=== PATIENT | male | born 1950 | race Caucasian/White ===

== ENCOUNTER 2016-04-16 09:45 | Day surgery (SDC) | payer BC, MEDICARE ==
--- NOTE | 2016-04-15 17:40 | PCM.PREANE ---
<Faisal Shook E - Last Filed: 04/15/16 17:38> Preanesthetic Assessment - ANESTHESIA/TRANSFUSION/FAMILY HX Family History of Anesthesia Reaction: No - REVIEW OF SYSTEMS Constitutional: Reports: no symptoms STAGE DRIVER: Reports: no symptoms Respiratory: Reports: no symptoms Cardiovascular: Reports: no symptoms GI: Reports: no symptoms Other: Reports: none - PHYSICAL ASSESSMENT Vital Signs: Last Vital Signs Temp 98.2 F 04/16/16 10:50 Pulse 58 L 04/16/16 10:50 Resp 16 04/16/16 10:50 BP 122/80 04/16/16 10:50 Pulse Ox 96 04/16/16 10:50 Height: 5 ft 8 in Weight: 165 lb - LAB Values: Laboratory Last Values INR 1.28 (0.86-1.11) H 04/16/16 10:11 - ALLERGIES Allergies/Adverse Reactions: Allergies Allergy/AdvReac Type Severity Reaction Status Date / Time No Known Allergies Allergy Verified 04/13/16 12:43 - ANESTHESIA PLAN Free Text/Narrative:: EKG done at [facility] pre op shows 1st degree AV block and LVH Anesthesia Type Planned: MAC - ACKNOWLEDGEMENTS Pt an appropriate candidate for the planned anesthesia: Yes Alternatives and risks of anesthesia discussed w pt/guardian: Yes Pt/Guardian understands and agree with anesthesia plan: Yes PreAnesthesia Questionnaire HEENT History: Reports: Other (see below) Other HEENT History: wears glasses Cardiovascular History: Reports: Heart valve replacement Other Cardiovascular History: hx aortic valve replacement Respiratory History: Reports: None Gastrointestinal History: Reports: Other (see below) Other Gastrointestinal History: occasional heartburn Genitourinary History: Reports: None Musculoskeletal History: Reports: Arthritis Neurological History: Reports: None Psychiatric History: Reports: None Endocrine/Metabolic History: Reports: None Hematologic History: Reports: Blood transfusion(s) Immunologic History: Reports: None Oncologic (Cancer) History: Reports: None Dermatologic History: Reports: None - Infectious Disease History Infectious Disease History: Reports: None - Past Surgical History Head Surgeries/Procedures: Reports: None GI Surgical History: Reports: Hernia, inguinal Male Surgical History: Reports: Vasectomy - SUBSTANCE USE Smoking Status *Q: Never Smoker Recreational Drug Use History: No - HOME MEDS Home Medications: Home Meds Benazepril/Hydrochlorothiazide [Lotensin HCT 20-25 MG] 1 tab PO DAILY 04/13/16 [ History] NIFEdipine [Nifedipine ER] 90 mg PO ASDIRECTED 04/13/16 [History] Warfarin [Coumadin] 1 tab PO ASDIRECTED 04/13/16 [History] Warfarin [Coumadin] 1 tab PO ASDIRECTED 04/13/16 [History] - CURRENT (IN HOUSE) MEDS Current Meds: Current Medications Lactated Ringer's (Ringers, Lactated) 1,000 mls @ 125 mls/hr IV ASDIRECTED MARIE Last Admin: 04/16/16 11:07 Dose: 125 mls/hr Sodium Chloride (Saline Flush) 10 ml FLUSH ASDIRECTED PRN PRN Reason: Keep Vein Open Sodium Chloride (Saline Flush) 2.5 ml FLUSH ASDIRECTED PRN PRN Reason: Keep Vein Open Discontinued Medications Fentanyl (Sublimaze) Confirm Administered Dose 100 mcg .ROUTE .STK-MED ONE Stop: 04/16/16 10:52 Lidocaine (Xylocaine-Mpf 2%) Confirm Administered Dose 5 ml .ROUTE .STK-MED ONE Stop: 04/16/16 10:51 Midazolam HCl (Versed 1 Mg/Ml) Confirm Administered Dose 2 mg .ROUTE .STK-MED ONE Stop: 04/16/16 10:52 Propofol (Diprivan 20 Ml) Confirm Administered Dose 200 mg .ROUTE .STK-MED ONE Stop: 04/16/16 10:26 Propofol (Diprivan 20 Ml) Confirm Administered Dose 200 mg .ROUTE .STK-MED ONE Stop: 04/16/16 10:51 <Neptali Grullon - Last Filed: 04/16/16 11:29> Preanesthetic Assessment - ANESTHESIA/TRANSFUSION/FAMILY HX Anesthesia/Transfusion History: Prior Anesthesia Intubation History: Unknown Additional History: Off coumadin for 3 days. Arranged for cook pickled meat post procedure...may be delayed. - REVIEW OF SYSTEMS Constitutional: Reports: no symptoms STAGE DRIVER: Reports: no symptoms Respiratory: Reports: no symptoms Cardiovascular: Reports: no symptoms, blood pressure problem (treated) GI: Reports: no symptoms Other: Reports: none - PHYSICAL ASSESSMENT ASA Class: 3 Airway Class: Mallampati = 2 Dentition: Reports: normal dentition Thyro-Mental Finger Breadths: 3 Mouth Opening Finger Breadths: 3 ROM/Head Extension: full Respiratory Status: lungs clear to auscultation bilaterally Cardiovascular Status: regular rate & rhythm, no murmur, other (valve click over right sternal border) - ANESTHESIA PLAN Preop Beta Dionicio: No - ACKNOWLEDGEMENTS Pt an appropriate candidate for the planned anesthesia: Yes Alternatives and risks of anesthesia discussed w pt/guardian: Yes Pt/Guardian understands and agree with anesthesia plan: Yes PreAnesthesia Questionnaire - Past Surgical History Cardiovascular Surgical History: Reports: Valve replacement (aortic valve replaced 1990)
[~2016-04-16 09:45] MED LIST: Lactated Ringers 1,000 ML IV SCH; Sodium Chloride 0.9% 10 ML Syringe FLUSH PRN; Sodium Chloride 0.9% 2.5 ML Syringe FLUSH PRN
[2016-04-16] MEDS ORDERED: Propofol 200 MG/20 ML SDV ONE ×2 (10:25→10:50)
[2016-04-16] MEDS ORDERED: Lidocaine 2% 5 ML SDV ONE (10:50)
[2016-04-16] MEDS ORDERED: fentaNYL 100 MCG/2 ML SDV ONE (10:51)
[2016-04-16] MEDS ORDERED: Midazolam 1 MG/ML 2 ML SDV ONE (10:51)
--- NOTE | 2016-04-16 12:04 | PCM.OPNOTE ---
- General Post-Op/Procedure Note Date of Surgery/Procedure: 04/16/16 Operative Procedure(s): Screening colonoscopy Findings: Diffuse diverticulosis throughout colon Pre Op Diagnosis: screening colonoscopy Post-Op Diagnosis: diverticulosis Primary Surgeon: Justina Barros Condition: Good
--- NOTE | 2016-04-16 12:28 | PCM.POSTAN ---
POST ANESTHESIA ASSESSMENT - MENTAL STATUS Mental Status: alert, oriented - RESPIRATORY Respiratory Status: respiratory rate WNL, airway patent, O2 saturation stable - CARDIOVASCULAR CV Status: pulse rate WNL, blood pressure stable - GASTROINTESTINAL GI Status: no symptoms - POST OP HYDRATION Hydration Status: adequate & stable
--- NOTE | 2016-04-16 13:05 | PCM48HPAN ---
Post Anesthesia Note - EVALUATION WITHIN 48HRS OF ANESTHETIC Vital Signs in Normal Range: Yes Patient Participated in Evaluation: Yes Respiratory Function Stable: Yes Airway Patent: Yes Cardiovascular Function Stable: Yes Hydration Status Stable: Yes Pain Control Satisfactory: Yes Nausea and Vomiting Control Satisfactory: Yes Mental Status Recovered: Yes
[2016-04-16 15:12] VITALS: BP 108/64
--- NOTE | 2016-04-16 18:55 | OR ---
SURGEON: JASVIR GAYLE MD DATE OF PROCEDURE: 04/16/2016 PREOPERATIVE DIAGNOSIS: Screening colonoscopy. POSTOPERATIVE DIAGNOSIS: Diverticulosis. PROCEDURE PERFORMED: Screening colonoscopy. INSTRUMENT USED: Olympus colonoscope. ANESTHESIA: MAC. EXTENT OF EXAM: To the cecum. PREPARATION: Good. LIMITATIONS: None. INDICATIONS: The patient is a 66-year-old male, who presents for screening colonoscopy. We discussed the procedure including the risks, including bleeding, infection, or damage to surrounding structures, including perforation. The patient is on Coumadin for a heart valve and has been bridging with Lovenox up to the procedure today. His INR is now within normal limits and he is cleared to undergo a colonoscopy. PROCEDURE IN DETAIL: The patient was brought to the endoscopy suite and placed in the left lateral decubitus position. A time-out was completed verifying the patient's name, age, date of , allergies, and procedure to be performed. Monitored anesthesia care was induced and continuous oxygen was provided via face mask throughout the procedure. After adequate sedation was achieved, a digital rectal exam was performed. This was within normal limits. A well lubricated colonoscope was then inserted in the rectum and advanced under direct visualization to the level of the cecum. The cecum was identified by visual and anatomic landmarks. This picture was taken of the cecal cap as well as with retroflexion within the cecum. The scope was then fully withdrawn while examining the color, texture, anatomy, and integrity of the mucosa from the cecum to the anal canal. The findings were consistent with diffuse and extensive diverticulosis throughout the whole colon. The scope was then brought into the rectum and retroflexed to allow visualization of the anal canal opening. This appeared normal. A photograph was taken. The scope was then straightened out and removed from the patient. The procedure was then terminated and the patient was taken to the recovery room in stable condition. ENDOSCOPIC DIAGNOSIS: Diverticulosis. RECOMMENDATION: Follow up in clinic in 2 weeks. ZORAN MARRERO /[id number]
== END 2016-04-16 13:30 | disposition home or self-care (01) ==
LOC: MW.SDS 09:45
PROVIDERS: ATTEND Surgery
PROC: 0DJD8ZZ Inspection of Lower Intestinal Tract, Via Natural or Artificial Opening Endoscopic (ICD-10-PCS; principal; 2016-04-16)
DX: Z12.11 Encounter for screening for malignant neoplasm of colon (principal); K57.30 Diverticulosis of large intestine without perforation or abscess without bleeding; M19.90 Unspecified osteoarthritis, unspecified site; Z79.01 Long term (current) use of anticoagulants; Z79.899 Other long term (current) drug therapy; Z95.2 Presence of prosthetic heart valve; Z98.52 Vasectomy status; Z90.49 Acquired absence of other specified parts of digestive tract; Z98.890 Other specified postprocedural states
CPT/HCPCS: 36415; 45378; 85610; J2250; J3010; J7120; J2704